=== PATIENT | female | born 2000 | race Two or more races ===

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

== ENCOUNTER 2020-03-24 09:54 | Emergency (ER) | payer MEDICAID ==
[~2020-03-24] VITALS: Ht 154.9 cm; Wt 81.6 kg
[2020-03-24 10:00] VITALS: BP 147/99
[2020-03-24] MEDS ORDERED: KETOROLAC TROMETH 60MG/2ML VIAL IM ONE (11:00)
== END 2020-03-24 11:25 | disposition home or self-care (01) ==
LOC: ER 09:54
DX: S83.91XA Sprain of unspecified site of right knee, initial encounter (principal); X50.1XXA Overexertion from prolonged static or awkward postures, initial encounter; Y93.89 Activity, other specified; Y92.89 Other specified places as the place of occurrence of the external cause; Y99.8 Other external cause status
CPT/HCPCS: 73562; 96372; 99283; J1885

== ENCOUNTER 2025-02-07 17:14 | Emergency (ER) | payer MEDICAID ==
[~2025-02-07] VITALS: Ht 154.9 cm; Wt 98.9 kg
--- NOTE | 2025-02-07 17:39 | ED.PDOC ---
BRICKMASON SUPERVISOR HPI Comments HPI: Poor Historian. 24-year-old female 14 weeks gestation presents to emergency department for two day history of left lower and suprapubic cramps without any vaginal spotting or bleeding. No other associated symptoms. She has some nausea and vomiting yesterday but has resolved prior to our evaluation. Denies any fall or trauma. Patient is on vitamins. Vitals: temperature of 97.5F, pulse of 85, respiratory rate of 21, blood pressure of 119/79, SpO2 of 100%RA Past Medical History: Denies any Past Surgical History: Denies any REVIEW OF SYSTEMS: CONSTITUTIONAL: Denies acute: fever, diaphoresis, chills, generalized weakness. HEAD: Denies acute: headache, photophobia Eyes: Denies acute: Double vision, vision loss, eye pain, eye discharge. EARS: Denies acute: tinnitus, hearing loss, ear discharge, ear pain, THROAT: Denies acute: sore throat, swelling, difficulty swallowing , pain with swallowing, change in voice. NECK: Denies acute: neck pain, neck swelling, stiff neck. HEART: Denies acute : chest pain, palpitations, LUNGS: Denies acute: SOB, wheezing, cough, hemoptysis ABDOMEN: Denies acute: , Nausea, Vomiting, diarrhea, melena , hematemesis, hematochezia SKIN: Denies acute: rash, redness, lesions, itchiness. EXTREMITIES: Denies acute: calf pain, numbness, tingling, weakness, denies pain in extremity. Denies acute: Low back pain. Neuro: Denies acute: focal neurological deficit, motor or sensory focal neurological d eficit, tremors, seizure like activity, confusion, dizziness, change in mental status, loss of bowel or bladder function, cauda equina like symptoms. : Denies acute: dysuria, hematuria, flank pain, increase in urinary frequency. PSYCH: Denies acute: hallucination, suicidal ideation, homicidal ideation. FEMALE: Denies acute: abnormal vaginal bleeding, foul odor, unusual discharge. PHYSICAL EXAM: General: --no------acute distress, awake and alert. Head: normocephalic, atraumatic. Neck: supple, trachea is midline, no swelling. Throat: Normal phonation. Eyes:, no erythema, no purulent discharge, no proptosis, no icterus. Heart: regular rate, regular rhythm, no significant murmur appreciated. Lungs: no apparent respiratory distress, Able to speak in full sentences. No wheezing, no rhonchi, no crackles. No stridors Clear to auscultation bilaterally. Abdomen: Minimal suprapubic left lower quadrant tender to palpation, non distended, soft, no guarding, no rebound, + bowel sounds. Neuro: Awake, Alert, oriented to name, self, situation, follows commands GCS=15. Speech is normal. Skin: no petechia, no purpura, no cyanosis, non-pale, not jaundice. Lower extremities: --no - Pitting edema no deformity, no focal swelling, no calf TTP. Makes eye contact. moves all four extremities. Face: no apparent facial droop. lly. Ambulating in the ED independently. ED COURSE: Time Seen by MD: 17:16 Reviewed Notes: Nurses Notes, Allergies Allergies: Coded Allergies: NO KNOWN ALLERGIES (Unverified , 07/16/18) Information Source: Patient Past Medical History PAST MEDICAL HISTORY: Denies Surgical History: Denies all surgeries VIDEO CAMERA OPERATOR History: No Pertinent VIDEO CAMERA OPERATOR History Family History Family History: Reviewed,noncontributory to illness Social History Smoker: Non-Smoker Alcohol: Denies ETOH Use Drugs: Denies Drug Use Lives In: Home Was a procedure done? Was a procedure done?: No Differential Diagnosis (VIDEO CAMERA OPERATOR) Vaginal Bleeding: - Complete, - Incomplete, - Inevitable, - Missed, - Threatened, Abruptio Placentae, Blood Loss Anemia, Cervicitis, Placenta Previa, Precipitous Hct, Trauma, UTI X-Ray, Labs, Meds, VS Vital Signs Date Time Temp Pulse Resp B/P (MAP) Pulse Ox O2 Delivery O2 Flow Rate FiO2 02/07/25 19:14 Room Air* 0 21 02/07/25 19:14 98.6 94 21 114/66 (82) 98 98.6 02/07/25 17:43 97.5 85 21 119/79 (92) 100 97.5 Lab Test 02/07/25 18:00 02/07/25 17:35 Range/Units White Blood Count 9.9 4.4-10.8 10^3/uL Red Blood Count 5.50 H 4.0-5.20 10^6/uL Hemoglobin 12.0 L 12.2-16.2 g/dL Hematocrit 37.6 36.0-46.0 % Mean Corpuscular Volume 68.4 L 80.0-100.0 fL Mean Corpuscular Hemoglobin 21.8 L 28.0-32.0 pg Mean Corpuscular Hemoglobin Concent 31.9 L 32.0-36.0 g/dL Red Cell Distribution Width 17.8 H 11.8-14.3 % Platelet Count 224 140-450 10^3/uL Mean Platelet Volume 8.7 6.9-10.8 fL Neutrophils (%) (Auto) 67.4 37.0-80.0 % Lymphocytes (%) (Auto) 23.5 10.0-50.0 % Monocytes (%) (Auto) 6.5 0.0-12.0 % Eosinophils (%) (Auto) 1.8 0.0-7.0 % Basophils (%) (Auto) 0.8 0.0-2.0 % Neutrophils # (Auto) 6.6 1.6-8.6 10 ^3/uL Lymphocytes # (Auto) 2.3 0.4-5.4 10 ^3/uL Monocytes # (Auto) 0.6 0-1.3 10 ^3/uL Eosinophils # (Auto) 0.2 0-0.8 10 ^3/uL Basophils # (Auto) 0.1 0-0.2 10 ^3/uL Nucleated Red Blood Cells 0.0 % Sodium Level 139 136-145 mmol/L Potassium Level 3.6 3.5-5.1 mmol/L Chloride Level 107 98-107 mmol/L Carbon Dioxide Level 23 20-31 mmol/L Anion Gap 9 5-15 Blood Urea Nitrogen 6 L 9-23 mg/dL Creatinine 0.54 L 0.550-1.02 mg/dL Glomerular Filtration Rate Calc 131 >90 mL/min BUN/Creatinine Ratio 11.1 10.0-20.0 Serum Glucose 85 74-106 mg/dL Calcium Level 9.5 8.7-10.4 mg/dL Total Bilirubin 0.3 0.2-1.0 mg/dL Aspartate Amino Transferase (AST) 9 L 13-40 U/L Alanine Aminotransferase (ALT) 10 7-40 U/L Alkaline Phosphatase 39 L 46-116 U/L Total Protein 7.0 5.7-8.2 g/dL Albumin 4.4 3.2-4.8 g/dL Beta HCG, Quantitative 82578.0 H 1.5-4.2 mIU/mL Urine Color Light-yellow Yellow Urine Clarity Turbid H Clear Urine pH 6.5 5.0-9.0 Urine Specific [place] 1.026 1.001-1.035 Urine Protein Trace H Negative Urine Ketones Trace Negative Urine Blood Negative Negative /uL Urine Nitrite Negative Negative Urine Bilirubin Negative Negative Urine Urobilinogen Normal Negative mg/dL Urine Leukocyte Esterase Negative Negative /uL Urine RBC 3 0 - 4 /hpf Urine Microscopic WBC < 1 0-5 /HPF Urine Squamous Epithelial Cells Mod <5 /hpf Urine Bacteria None seen None Seen /hpf Urine Mucus Few None Seen Urine Glucose Trace Normal mg/dL [place] [address] Ph: [phone] DIAGNOSTIC IMAGING Diagnostic Imaging Report : [id number] Signed PATIENT: ROC SANTIAGO ACCT: [id number] UNIT: [id number] : 2000 LOC: ER ROOM / BED: / AGE / SEX: 24 / F ADM STATUS: REG ER SERVICE [id number] ORDERING PHYSICIAN: ANTONIO VERDUGO DO PROCEDURE(s): OBUS - OB ULTRASOUND COMP GTR 14 WKS REASON: 14 weeks gestation, lower abd pain ORDER NUMBER(s): [id number], ACCESSION NUMBER(s): [id number] LIMITED OB ULTRASOUND > 14 WKS: HISTORY: 14 weeks gestation, lower abd pain TECHNIQUE: Multiple real-time grayscale images of the gravid uterus with duplex Doppler color flow and M-mode spectral analysis. TRANSDUCER: Transabdominal FINDINGS: IUP single live fetus at 14 weeks 2 days based on composite averages of the BPD, head circumference, abdominal circumference and femur length Estimated weight 87.64 grams heart rate 164 beats per minute DELL adequate cm Cervix 4.44 cm Breech Presentation Grade 1 posterior Placenta without previa or abruption. IMPRESSION: 1. IUP single live fetus at 14 weeks 2 days AUA corresponding to an SANTIAGO of 08/06/2025 ATED BY: JOHN PANDA MD DICTATED DATE/TIME: 02/07/251815 SIGNED BY: JOHN PANDA MD SIGNED DATE/TIME: 02/07/251815 CC: Time of 1ST Reevaluation: 00:00 Reevaluation 1ST: Improved Patient Education/Counseling: Diagnosis, Treatment Family Education/Counseling: No Family Present Comments Patient presented with the above HPI.-abdominal pain in -----workup was initiated. patient was found with the above mentioned diagnosis. the following medications were ordered: please refer to order lists of meds and tests obtained by myself Dr. Verdugo. Patient ED course and VS have been stabilized. Patient has been reassessed in the ED and remained in a stable condition. Pertinent incidental findings were discussed with the patient and/or family. Patient/family voices understanding and is agreeable with plan. Patient has been observed in the ED adequate length of time to insure improvement/stability. Escalation of care considered: Consideration of escalation to observation or admission Patient was DISCHARGED home in a stable condition. All the reports of any imaging studies that were ordered by myself were reviewed by myself. Departure 1 Departure Time of Disposition: 19:30 Impression: Primary Impression: Abdominal pain during Disposition: 01 HOME / SELF CARE / HOMELESS Condition: Stable Additional Instructions: Additional instructions: You MUST follow-up with your primary care/family doctor in 1 to 2 days. If you are unable to see your primary care/family doctor, please return to our emergency room for re-assessment and re-evaluation in 1 to 2 days. Return to the emergency room here in our facility or to the nearest ER [facility] if your symptoms change or worsen. CONSULTATIONS: you MUST Follow-up for consultation as soon as possible with: Dr JALEESA Cortez doctor in 1-2 days. Please call for appointment. You MUST call the consultants office yourself to make an appointment. You may need to arrange that through your insurance and/or your primary/family doctor. If you are unable to see the distributor sales consultant in 1 to 2 days, you must return to our emergency room (or any other ER of your choice) for re-assessment and re- evaluation. Adequate fluid hydration. Absolute pelvic rest. Repeat beta-hCG levels in 48-72 hours. Repeat pelvic ultrasound in 4-5 days. Below is a copy of your radiological report for follow up: [address] [address] Ph: [phone] DIAGNOSTIC IMAGING Diagnostic Imaging Report : [id number] Signed PATIENT: ROC SANTIAGO ACCT: [id number] UNIT: [id number] : 2000 LOC: ER ROOM / BED: / AGE / SEX: 24 / F ADM STATUS: REG ER SERVICE 1736 ORDERING PHYSICIAN: ANTONIO VERDUGO DO PROCEDURE(s): OBUS - OB ULTRASOUND COMP GTR 14 WKS REASON: 14 weeks gestation, lower abd pain ORDER NUMBER(s): [id number], ACCESSION NUMBER(s): [id number] LIMITED OB ULTRASOUND > 14 WKS: HISTORY: 14 weeks gestation, lower abd pain TECHNIQUE: Multiple real-time grayscale images of the gravid uterus with duplex Doppler color flow and M-mode spectral analysis. TRANSDUCER: Transabdominal FINDINGS: IUP single live fetus at 14 weeks 2 days based on composite averages of the BPD, head circumference, abdominal circumference and femur length Estimated weight 87.64 grams heart rate 164 beats per minute DELL adequate cm Cervix 4.44 cm Breech Presentation Grade 1 posterior Placenta without previa or abruption. IMPRESSION: 1. IUP single live fetus at 14 weeks 2 days AUA corresponding to an SANTIAGO of 08/06/2025 ATED BY: JOHN PANDA MD DICTATED DATE/TIME: 02/07/251815 SIGNED BY: JOHN PANDA MD SIGNED DATE/TIME: 02/07/251815 CC: Discharged With: Self Critical Care Note Critical Care Time?: No I personally scribed for ANTONIO VERDUGO DO ([email or web address]) on 02/08/25 at 01:09. Electronically submitted by Gui Gage ([email or web address]). ANTONIO VERDUGO DO February 07, 2025 17:39
[2025-02-07 18:11] LABS: Basophils # (auto) 0.1 10 ^3/uL (0-0.2); Eosinophils # (auto) 0.2 10 ^3/uL (0-0.8); Lymphocytes # (auto) 2.3 10 ^3/uL (0.4-5.4); Mean Corpuscular Hemoglobin 21.8 pg (28.0-32.0); Monocytes # (auto) 0.6 10 ^3/uL (0-1.3)
[2025-02-07 18:12] LABS: Basophils % (auto) 0.8 % (0.0-2.0); Eosinophils % (auto) 1.8 % (0.0-7.0); Hematocrit 37.6 % (36.0-46.0); Lymphocytes % (auto) 23.5 % (10.0-50.0); Mean Corpuscular Hgb Conc. 31.9 g/dL (32.0-36.0); Mean Corpuscular Volume 68.4 fL (80.0-100.0); Monocytes % (auto) 6.5 % (0.0-12.0); Neutrophils # (auto) 6.6 10 ^3/uL (1.6-8.6); Neutrophils % (auto) 67.4 % (37.0-80.0); Platelet Count (auto) 224 10^3/uL (140-450); Red Cell Distribution Width 17.8 % (11.8-14.3); White Blood Cell 9.9 10^3/uL (4.4-10.8)
--- NOTE | 2025-02-07 18:18 | DVH ---
LIMITED OB ULTRASOUND > 14 WKS: HISTORY: 14 weeks gestation, lower abd pain TECHNIQUE: Multiple real-time grayscale images of the gravid uterus with duplex Doppler color flow an d M-mode spectral analysis. TRANSDUCER: Transabdominal FINDINGS: IUP single live fetus at 14 weeks 2 days based on composite averages of the BPD, head circumference, abdominal circumference and femur length Estimated weight 87.64 grams heart rate 164 beats per minute DELL adequate cm Cervix 4.44 cm Breech Presentation Grade 1 posterior Placenta without previa or abruption. IMPRESSION: 1. IUP single live fetus at 14 weeks 2 days AUA corresponding to an SANTIAGO of 08/06/2025
[2025-02-07 18:26] LABS: Alanine Aminotransferase 10 U/L (7-40); Albumin 4.4 g/dL (3.2-4.8); Anion Gap 9 (5-15); BUN/Creatinine Ratio 11.1 (10.0-20.0); Calcium 9.5 mg/dL (8.7-10.4); Carbon Dioxide 23 mmol/L (20-31); Chloride 107 mmol/L (98-107); Glucose 85 mg/dL (74-106); Potassium 3.6 mmol/L (3.5-5.1); Sodium 139 mmol/L (136-145)
[2025-02-07 18:28] LABS: Alkaline Phosphatase 39 U/L (46-116); Aspartate Aminotransferase 9 U/L (13-40); Bilirubin, Total 0.3 mg/dL (0.2-1.0); Blood Urea Nitrogen 6 mg/dL (9-23)
[2025-02-07 19:07] LABS: Urine Bacteria None Seen /hpf (None Seen)
[2025-02-07 19:14] VITALS: BP 114/66; PULSE 94; RESP 21; TEMP 98.6; O2SAT 98
[2025-02-07 19:28] LABS: Urine Blood Negative /uL (Negative); Urine Clarity Turbid (Clear); Urine Color Light-Yellow (Yellow); Urine Mucus FEW (None Seen); Urine Protein, UAD TRACE (Negative); Urine Specific Gravity 1.026 (1.001-1.035); Urine Squamous Epithelial Cell MOD /hpf (<5); Urine Urobilinogen Normal (Negative); Urine WBC < 1 /HPF (0-5); Urine pH 6.5 (5.0-9.0)
== END 2025-02-07 20:58 | disposition home or self-care (01) ==
LOC: ER 17:14
DX: O26.892 Other specified pregnancy related conditions, second trimester (principal); R10.32 Left lower quadrant pain; R10.2 Pelvic and perineal pain; Z3A.14 14 weeks gestation of pregnancy
CPT/HCPCS: 36415; 76805; 80053; 81001; 84702; 85025

== ENCOUNTER 2025-06-06 12:18 | Observation (INO) | payer MEDICAID ==
[~2025-06-06] VITALS: Ht 154.9 cm; Wt 104.3 kg
--- NOTE | 2025-06-06 18:23 | DVHDS2 ---
Physician Discharge Progress N Final Diagnosis: Ruled out labor Operations or Procedures: Operations or Procedures S: 25y/o IUP @ 31w presents with complaints of uterine contractions today. Reports uncomplicated with care at [facility], next appointment on 06/15/25 +FM, Denies LOF, VB, GODINEZ, RUQ pain, vision changes, Denies drinking any water today due to pain in her abdomen. Reports she had constant LUQ abdominal pain, dull ache 3/10 a few hours ago, reports it is feeling better than before now. O: VSS: See CPN NST reactive Abdomen palpates soft No LUQ tenderness on palpation, Heart: WNL Lungs: WNL PO hydration provided A: 25 y/o IUP @ 31w Ruled out labor LUQ pain P: Consulted with Dr. Cabrales, agrees with plan of care to discharge patient home to follow up with primary OB. PTL and PreE precautions given, FKC endorsed. RTH PRN Condition on Discharge: Stable Disposition: Home Discharge Instructions: Diet: Regular Activity: No Restrictions, As Tolerated Medications: See med list Follow Up Care: Specialist: Follow up with [facility] Discharge Statement: "Patient was advised to return to the ER or call 911 if any headaches, dizziness, shortness of breath, chest pain, abdominal pain, bleeding, fevers, or worsening of medical condition. Patient was counseled about treatment plan, medications, possible side effects, patientverbalized understanding. All questions were answered to the best of my ability. This discharge took greater then 30 minutes in planning, reviewing docume ntation, counseling the patient, and discussing with other team members." Visit Coding OBGYN Date of Service: Jun 06, 2025 Billing Provider: VIRGINIA SANTOYO CNM VOUCHER CLERK Common Visit Codes: 80649-LAZLZER OBS CARE (HIGH) VOUCHER CLERK Procedure Codes: 29101-89- NON-STRESS TEST VIRGINIA SANTOYO CNM Jun 06, 2025 18:23
== END 2025-06-06 13:18 | disposition home or self-care (01) ==
LOC: UNDOADMOB 12:18 → LDRP 12:18 → UNDODISOB 13:18
PROVIDERS: ADMIT Obstetrics & Gynecology; ATTEND Obstetrics & Gynecology
DX: O62.9 Abnormality of forces of labor, unspecified (principal); Z3A.31 31 weeks gestation of pregnancy; Z98.890 Other specified postprocedural states
CPT/HCPCS: 59025; 81002; 94760; G0378